=== PATIENT | female | born 2005 | race African-American/Black ===

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

== ENCOUNTER 2024-05-04 10:14 | Outpatient (CLI) | payer OTHER, SELFPAY ==
[2024-05-04 11:04] LABS: Hematocrit 29.8 % (37.0-47.0); Hemoglobin 8.6 g/dL (12.0-15.0); Immature Platelet Fraction Pct 4.1 % (0.9-11.2); Mean Corpuscular HGB Conc 28.9 g/dl (32-36); Mean Corpuscular Hemoglobin 17.8 pg (26-34); Mean Corpuscular Volume 61.6 fl (80-100); Platelet Count Result 334 k/mm3 (150-375); Red Blood Count 4.84 M/mm3 (4.2-5.4); Red Cell Distribution Width 21.3 % (11.5-14.5); White Blood Count 10.9 K/mm3 (4.5-10.0)
[2024-05-04 11:25] LABS: Iron 31 ug/dL (37-170)
[2024-05-04 11:34] LABS: Percent Iron Saturation 9 % (20-50)
[2024-05-04 12:29] LABS: Folic Acid 7.2 ng/mL (2.76->20)
[2024-05-09 13:28] LABS: Immunoglobulin A 228 mg/dL (47-310); TTG IGA AB <1.0 U/mL
== END 2024-05-04 10:15 | disposition home or self-care (01) ==
LOC: ANHLAB 10:15
PROVIDERS: Visit Provider Nurse Practitioner
DX: D50.9 Iron deficiency anemia, unspecified (principal)
CPT/HCPCS: 36415; 82607; 82728; 82746; 82784; 83540; 83550; 84443; 85027; 85055; 86364